=== PATIENT | male | born 1980 | race Two or more races ===

== ENCOUNTER 2018-08-18 22:57 | Emergency (ER) | payer OTHER ==
[~2018-08-18] VITALS: Ht 170.2 cm; Wt 77.1 kg
[2018-08-18 23:30] VITALS: BP 128/87
--- NOTE | 2018-08-19 00:17 | Emergency Room Report ---
History of Present Illness General Chief Complaint: Laceration Source: Patient Present Illness HPI Patient is a 37-year-old male presented after increased left middle finger pain and swelling. Patient reports having been chewing his nails prior to onset. Patient denies any fever. He reports having increased pain to the tip of the finger. He is right-hand dominant. He works at a body shop. He denies other locations of pain. Allergies: Coded Allergies: No Known Allergies (Unverified , 08/18/18) Patient History Past Medical History: see triage record Reviewed Nursing Documentation: PMH: Agreed; PSxH: Agreed Nursing Documentation-PMH Past Medical History: No Stated History Review of Systems All Other Systems: negative except mentioned in HPI Physical Exam Vital Signs Date Time Temp Pulse Resp B/P (MAP) Pulse Ox O2 Delivery O2 Flow Rate FiO2 08/18/18 23:14 98.1 86 15 132/97 96 Room Air General Appearance: well appearing, no apparent distress, alert, GCS 15, non- toxic Head: normocephalic, atraumatic ENT: hearing grossly normal, normal voice Neck: full range of motion, supple Respiratory: no respiratory distress, speaking full sentences Musculoskeletal: normal inspection, other - paronychial swelling left middle finger Neurologic: normal gait Psychiatric: mood/affect normal Skin: other - left middle finger nailfold swelling and erythema Procedures Incision and Drainage Incision and Drainage : Site: finger Wound Location: upper extremity Wound's Depth, Shape: superficial Wound Length (cm): 1 Wound Explored: clean Anesthesia: 1% Lidocaine Volume Anesthetic (ccs): 2 Patient Tolerated: Well Complications: None Medical Decision Making Diagnostic Impression: Primary Impression: Paronychia of finger ER Course Patient presented for finger swelling. Differential diagnosis included wasn't limited to abscess, osteomyelitis, paronychia among others. Patient has a benign exam and does not appear to require any further imaging or laboratory testing at this time. The patient presented for a paronychial infection. The this was incised and drained with moderate purulent drainage. Sterile dressing was applied. The patient is advised to have wound checked in the next few days. He is given prescription for pain medications and antibiotics.The patient advised to return if he began having worsening pain or fever or other concerns. Last Vital Signs Date Time Temp Pulse Resp B/P (MAP) Pulse Ox O2 Delivery O2 Flow Rate FiO2 08/18/18 23:14 98.1 86 15 132/97 96 Room Air Status: improved Disposition: HOME, SELF-CARE Condition: Stable Scripts Ibuprofen* (MOTRIN*) 600 Mg Tablet 600 MG ORAL Q8H PRN for For Pain, #30 TAB 0 Refills Prov: Wero Peña MD 08/19/18 Cephalexin* (KEFLEX*) 500 Mg Capsule 500 MG ORAL EVERY 6 HOURS, #40 CAP Prov: Wero Peña MD 08/19/18 Wero Peña MD Aug 19, 2018 00:17
[2018-08-19] MEDS ORDERED: CEPHALEXIN500 MG ORAL (00:18)
[2018-08-19] MEDS ORDERED: IBUPROFEN600 MG ORAL (00:18)
[2018-08-19 00:30] VITALS: BP 132/82
== END 2018-08-19 00:30 | disposition home or self-care (01) ==
LOC: EMR 23:39
DX: L03.012 Cellulitis of left finger (principal)
CPT/HCPCS: 10060; 99283